=== PATIENT | female | born 1970 | race Two or more races ===

== ENCOUNTER 2019-12-10 12:07 | Emergency (ER) | payer OTHER ==
[~2019-12-10] VITALS: Ht 149.9 cm; Wt 67.1 kg
[2019-12-10 12:18] VITALS: BP 126/72
[2019-12-10] MEDS ORDERED: KETOROLAC TROMETH 60MG/2ML VIAL IM ONE (14:00)
== END 2019-12-10 14:15 | disposition home or self-care (01) ==
LOC: ER 12:07
DX: S90.32XA Contusion of left foot, initial encounter (principal); S60.222A Contusion of left hand, initial encounter; S60.221A Contusion of right hand, initial encounter; S50.811A Abrasion of right forearm, initial encounter; V43.52XA Car driver injured in collision with other type car in traffic accident, initial encounter; Y93.I9 Activity, other involving external motion; Y92.410 Unspecified street and highway as the place of occurrence of the external cause; Y99.8 Other external cause status
CPT/HCPCS: 73130; 73630; 96372; 99284; J1885